=== PATIENT | male | born 1995 | race Asian ===

== ENCOUNTER 2021-03-26 15:35 | Emergency (ER) | payer OTHER ==
[2021-03-26 20:58] LABS: SARS-CoV-2 PCR by NAA Not Detected (NotDetected)
== END 2021-03-26 16:11 | disposition home or self-care (01) ==
LOC: ERS 15:35
DX: R52 Pain, unspecified (principal); Z20.822 Contact with and (suspected) exposure to COVID-19
CPT/HCPCS: 87635; 99283; U0003; U0005

== ENCOUNTER 2021-05-09 00:01 | Emergency (ER) | payer OTHER ==
[2021-05-09 00:42] LABS: #Eosinphils 0.1 thou/uL (0.0-0.7); #Lymphocytes 0.9 thou/uL (1.20-3.40); #Monocytes 0.2 thou/uL (0.11-0.59); #Neutrophils 8.2 thou/uL (1.40-6.50); %Basophils 0.3 % (0.0-1.0); %Eosinophils 0.7 % (0.0-10.0); %Lymphocytes 9.6 % (21.0-51.0); %Monocytes 2.2 % (0.0-10.0); %Neutrophils 87.2 % (42.0-75.0); Hemoglobin 14.3 g/dL (14.0-18.0); Mean Corpuscular HGB CONC 34.1 g/dL (32.0-36.0); Mean Corpuscular Hemoglobin 28.6 pg (27.0-31.0); Mean Corpuscular Volume 83.9 fL (78.0-98.0); Mean Platelet Volume 8.4 fL (7.4-10.4); Platelet Count 201 thou/uL (130-400); RBC Distribution Width 11.9 % (11.5-14.5); White Blood Cell (WBC) Count 9.4 thou/uL (4.8-10.8)
[2021-05-09 01:08] LABS: ALT (SGPT) 65 U/L (8-55); AST (SGOT) 43 U/L (5-34); Albumin 4.4 g/dL (3.5-5.0); Alkaline Phosphatase 107 U/L (40-110); Anion Gap 14 mmol/L (10-20); BUN (Urea Nitrogen) 8 mg/dL (8.9-20.6); Bilirubin, Total 0.4 mg/dL (0.2-1.2); Calc. Creatinine Clearance 0 mL/min (70-130); Carbon Dioxide 26 mmol/L (22-29); Chloride 101 mmol/L (98-107); Globulin 2.5 g/dL (2.4-3.5); Glucose 99 mg/dL (70-105); Potassium 3.4 mmol/L (3.5-5.1); Protein, Total 6.9 g/dL (6.0-8.3); Sodium 138 mmol/L (136-145)
[2021-05-09] MEDS ORDERED: Mag-Al 1200 mg/1200 mg/30 ML UDCUP ONE (03:12)
[2021-05-09] MEDS ORDERED: Ibuprofen 200 MG TAB ONE (03:12)
[2021-05-09] MEDS ORDERED: Acetaminophen 500 MG TAB ONE (03:12)
[2021-05-09] MEDS ORDERED: Lidocaine Viscous Sol 2% 15 ml UD Cup ONE (03:13)
== END 2021-05-09 03:38 | disposition home or self-care (01) ==
LOC: ERS 00:01
DX: R07.89 Other chest pain (principal); R10.9 Unspecified abdominal pain
CPT/HCPCS: 36415; 71045; 80053; 84484; 85025; 93005

== ENCOUNTER 2021-05-13 15:45 | Outpatient (CLI) | payer OTHER | END 2021-05-13 15:46 | disposition home or self-care (01) | LOC: ULT 15:45 | PROVIDERS: ATTEND Internal Medicine Gastroenterology | DX: R10.33 Periumbilical pain (principal); R94.5 Abnormal results of liver function studies; R19.4 Change in bowel habit; R12 Heartburn; K76.0 Fatty (change of) liver, not elsewhere classified | CPT/HCPCS: 74018; 76705 ==